=== PATIENT | female | born 1935 | race Caucasian/White ===

== ENCOUNTER 2017-09-06 14:05 | Inpatient (IN) | payer OTHER ==
[~2017-09-06] VITALS: Ht 154.9 cm; Wt 79.6 kg
[2017-09-06 14:00] VITALS: BP 143/83; PULSE 68; TEMP 36.6; O2SAT 94; Ht 154.9 cm; Wt 79.6 kg
[2017-09-06] MEDS ORDERED: ACETAMINOPHEN 325 MG TAB PO PRN (14:45)
[2017-09-06] MEDS ORDERED: BENZ100C84 PO (14:49)
[2017-09-06] MEDS ORDERED: POLYSOL4 OPB (14:49)
[2017-09-06] MEDS ORDERED: LEVE750T PO (14:49)
[2017-09-06] MEDS ORDERED: NTRGSL/4 SL (14:49)
[2017-09-06] MEDS ORDERED: CALC500C70 PO (14:49)
[2017-09-06] MEDS ORDERED: DPRSCR15 TOP (14:49)
[2017-09-06] MEDS ORDERED: FAMO20TA11 PO (14:49)
[2017-09-06] MEDS ORDERED: POTA10CA28 PO (14:49)
[2017-09-06] MEDS ORDERED: OSEL75CA12 PO (14:49)
[2017-09-06] MEDS ORDERED: LNX125 PO (14:49)
[2017-09-06] MEDS ORDERED: PRAV20TA PO (14:49)
[2017-09-06] MEDS ORDERED: PRED20TA PO (14:49)
[2017-09-06] MEDS ORDERED: FURO-85 PO (14:49)
[2017-09-06] MEDS ORDERED: ATRINS NEB (16:33)
[2017-09-06] MEDS ORDERED: CMD/25 PO (16:33)
[2017-09-06] MEDS ORDERED: CMD5 PO (16:33)
[2017-09-06] MEDS ORDERED: CHOL400T PO (16:33)
[2017-09-06] MEDS ORDERED: METO100T44 PO (16:33)
[2017-09-06] MEDS ORDERED: PRAV40TA2 PO (16:33)
[2017-09-06 16:37] VITALS: BP 133/85; PULSE 72; TEMP 36.5; O2SAT 92
[2017-09-06 16:48] LABS: INR 2.1 (0.9-1.1)
[2017-09-06 16:57] LABS: ALBUMIN 3.4 gm/dl (3.4-5.0); CALCIUM 8.9 mg/dl (8.5-10.1); CREATININE 1.13 mg/dl (0.60-1.20); POTASSIUM 4.7 mmol/L (3.5-5.1)
[2017-09-06 16:59] LABS: PHOSPHORUS 2.6 mg/dl (2.5-4.9); TOTAL PROTEIN 7.3 gm/dl (6.4-8.2)
--- NOTE | 2017-09-06 17:12 | History and Physical ---
History & Physical Date & Time of Service: Sep 06, 2017 ~ 16:00 Chief Complaint: Atrial Fibrillation with RVR, Transferred from [facility] Primary Care Physician: Edmund Bearden History of Present Illness 82 year old female who was admitted to [facility] yesterday for atrial fibrillation with RVR and influenza B. Patient has a long standing history of difficult to control atrial fibrillation. She was hospitalized at the beginning of August and was started on digoxin in addition to her high dose metoprolol succinate. About 5 days ago patient started to get sick with fevers and productive cough. Influenza was [facility] Patient is unsure if she has been taking this medication correctly. She had an appointment with Dr. Chowdhury yesterday who found the patient to be in atrial fibrillation with RVR. She was then sent to [facility] ED where she was admitted. She was found to be influenza B positive. She was continued on Tamiflu and started on low dose Prednisone. She was also started on Cardizem drip for heart rate control which has since been weaned off. Her INR was 1.8 and she was started on Heparin gtt which has been discontinued as well. INR was 2.1 this morning. Patient currently reports she is feeling well. She reports much improvement in her cough. No feelings of chest pain, palpitations, or shortness of breath. She denies lightheadedness, dizziness, diaphoresis, or syncopal events. No abdominal pain, nausea, vomiting, or diarrhea. She denies any urinary symptoms. No further fevers or chills. At the time of my exam, patient is resting in bed in no acute distress. Past Medical/Surgical History Medical Problems: (1) Centrilobular emphysema Status: Chronic (2) CVA (cerebral vascular accident) Status: Chronic (3) Dyslipidemia Status: Chronic (4) Esophageal stricture Status: Chronic (5) HTN (hypertension) Status: Chronic (6) Osteoporosis Status: Chronic (7) Paroxysmal A-fib Status: Chronic (8) Refusal of blood transfusions as patient is Sabianism Status: Chronic (9) Seizure disorder Status: Chronic (10) Systolic CHF Status: Chronic (11) TIA (transient ischemic attack) Status: Chronic Surgical Problems: (1) History of appendectomy Status: Chronic (2) History of carpal tunnel surgery of right wrist Status: Chronic (3) History of cataract surgery Status: Chronic (4) History of lumpectomy of left breast Status: Chronic (5) Hx of cholecystectomy Status: Chronic (6) Hx of rectocele repair Status: Chronic (7) Hx of vaginal sling Status: Chronic (8) Status post ALFREDO-BSO Status: Chronic Family History non contributory due to patient's advanced age Social History Smoking Status: Never Smoker Alcohol Use: none Immunizations History of Influenza Vaccine: Yes Influenza Vaccine Date: Apr 08, 2027 History of Tetanus Vaccine?: Yes Tetanus Immunization Date: Apr 03, 2013 History of Pneumococcal: Yes Pneumococcal Date: Oct 15, 2014 Allergies Coded Allergies: Penicillins (Verified Allergy, Intermediate, HIVES, 09/06/17) Amiodarone (Verified Allergy, Unknown, unknown, 09/06/17) Diazepam (Verified Adverse Reaction, Intermediate, loss of consciousness, 09/06/17) Lisinopril (Verified Adverse Reaction, Intermediate, cough, 09/06/17) Niacin (Verified Adverse Reaction, Intermediate, elevated LFT's, 09/06/17) Cholestyramine (Verified Adverse Reaction, Mild, weight gain, 09/06/17) Albuterol (Verified Adverse Reaction, Unknown, dizziness, 09/06/17) Amlodipine (Verified Adverse Reaction, Unknown, edema, 09/06/17) Sotalol (Verified Adverse Reaction, Unknown, arrhythmia, 09/06/17) Home Medications Scheduled Betamethasone Dip (Betamethasone Dipropionat), 1 APPLN TOP HS Calcium/Vitamin D (Os-Jean-Pierre 500 Plus D), 1 TAB PO DAILY Cholecalciferol (Vitamin D), 1 CAP PO DAILY Digoxin (Digoxin), 1 TAB PO DAILY Famotidine (Pepcid), 20 MG PO DAILY Furosemide (Lasix), 60 MG PO BID Ipratropium [place] (Ipratropium [place]), 1 VIAL NEB BID Levetiracetam (Keppra), 750 MG PO BID Metoprolol Succ (Toprol Xl) (Toprol-Xl ), 100 MG PO BID Nitroglycerin (Nitrostat), 1 TAB SL UD Oseltamivir (Tamiflu), 75 MG PO BID Potassium Chloride (Micro-K Ext Rel), 10 MEQ PO DAILY Pravastatin Sodium (Pravastatin Sodium), 1 TAB PO HS Prednisone (Prednisone), 1 TAB PO DAILY Warfarin Sod (Coumadin), 5 MG PO 3XWK Warfarin Sod (Coumadin), 2.5 MG PO 4XWK Scheduled PRN Benzonatate (Tessalon Perles), 100 MG PO TID PRN for Cough Polyethylene Glycol-Propylene (Systane), 1 DROPS OPB QID PRN for DRYNESS Review of Systems ROS per HPI, all other systems reviewed and negative Physical Exam Vital Signs Date Time Temp Pulse Resp B/P (MAP) Pulse Ox O2 Delivery O2 Flow Rate FiO2 09/06/17 16:37 36.5 72 18 133/85 (101) 92 Room Air 09/06/17 14:00 36.6 68 20 143/83 94 Room Air General Appearance: WD/WN, no apparent distress Head: normocephalic, atraumatic Eyes: normal inspection, EOMI, sclerae normal ENT: hearing grossly normal, + pertinent finding (mucous membranes moist) Neck: supple, no JVD, trachea midline Respiratory/Chest: no respiratory distress, + wheezing (faint, scattered, expiratory ) Cardiovascular: + irregularly irregular (rate controlled), + pertinent finding (trace edema BLLE) Abdomen/GI: normal bowel sounds, non tender, soft, no organomegaly Extremities/Musculoskelatal: normal inspection, no calf tenderness, normal capillary refill Neurologic/Psych: no motor/sensory deficits, alert, normal mood/affect, oriented x 3 Skin: normal color, warm/dry Diagnostics Laboratory Results Results Past 24 Hours Test 09/06/17 16:24 Range/Units Impression Assessment and Plan ATRIAL FIBRILLATION - admit to tele - patient transferred from [facility] to undergo ablation and cardiac pacemaker placement with Dr. Chowdhury - patient has along standing history of difficult to control atrial fibrillation - had a recent hospitalization where digoxin was added to high dose metoprolol succinate - developed fever/cough about 5 days ago and presented to Dr. Chowdhury's office yesterday and found to be in atrial fibrillation with RVR - was sent to [facility] ED where she was admitted - was on Cardizem gtt which has since been weaned off - also was on heparin gtt for mildly subtherapeutic INR; INR today 2.1; no longer on heparin gtt - case discussed with Dr. Chowdhury - ok to give metoprolol tonight, NPO after midnight including meds; also requests anesthesia evaluation INFLUENZA B MILD COPD EXACERBATION - positive for influenza B at [facility] - droplet precautions - continue Tamilfu to complete course - continue low dose prednisone to complete 5 day course - check CXR - nebs CHRONIC SYSTOLIC CHF - EF 42% on echo 08/2017 - likely tachycardia induced - appears euvolemic, continue home dose furosemide SEIZURE DISORDER - continue levetiracetam CAODAISM DVT PROPHYLAXIS - INR 2.1 CODE STATUS - Patient is a full code as per my discussion with her. DISPO - In my clinical judgment this beneficiary meets acute admission criteria, established by [facility], that includes being hospitalized through two midnights. 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 Y/N: Yes Risk Level: Moderate Note ATTENDING ADDENDUM Record reviewed. Patient interviewed and examined. Care coordinated with SAIRA Avina. Please refer to her documentation for patient's history. Briefly, 82-year-old female with atrial fibrillation and other problems transferred from [facility] for anticipated ablation/ pacemaker. Recently diagnosed with influenza B. EXAM: General- no distress Lungs-diffuse mild wheezing; no respiratory distress Cardiovascular- irregular; no murmur or rub appreciated; no JVD; trace pretibial edema Abdomen- + bowel sounds, soft, nontender Extremities- no cyanosis; no calf tenderness Neuro- alert, mild confusion Skin- warm & dry . DATA: Lab studies as noted. EKG performed at 1651 demonstrated atrial fibrillation at a rate of 70/minute, left axis deviation, left bundle branch block. Chest x-ray demonstrated cardiomegaly, no infiltrates, effusions, CHF. ASSESSMENT AND PLAN: Persistent atrial fibrillation. Management per Cardiology. Recently diagnosed with influenza B with improving symptoms. Receiving prednisone for bronchospasm. Discontinue oseltamivir due to confusion. Change nebs to levalbuterol in light of atrial fibrillation. Patient was a bit confused at the time of my assessment and more confused later in the evening. Apparent delirium, possibly from medications. Oseltamivir and ipratropium discontinued. Please refer to SUSAN Rodrigues's documentation for discussion of other issues. Nehemiah Galvez MD .
[2017-09-06 17:14] LABS: BASO % 0.2 %; BASO ABS # 0.01 K/uL (0-0.2); HEMATOCRIT 43.5 % (37-47); HEMOGLOBIN 14.7 g/dL (12.0-16.0); IG# 0.01 K/uL (0.00-0.02); LYMPH % 19.7 %; LYMPH ABS # 1.03 K/uL (1.2-3.4); MEAN CORPUSCULAR HEMOGLOBIN 32.5 pg (25-34); MEAN CORPUSCULAR HGB CONC 33.8 g/dl (32-36); MEAN PLATELET VOLUME 11.6 fL (7.4-10.4); MONO % 4.8 %; MONO ABS # 0.25 K/uL (0.11-0.59); NEUT % 75.1 %; NEUT ABS # 3.93 K/uL (1.4-6.5); PLATELET COUNT 130 K/uL (130-400); RED CELL DISTRIBUTION WIDTH CV 14.4 % (11.5-14.5); RED CELL DISTRIBUTION WIDTH SD 50.8 fL (36.4-46.3); WHITE BLOOD COUNT 5.23 K/uL (4.8-10.8)
[2017-09-06] MEDS: FUROSEMIDE 20 MG TAB PO SCH (18:39)
--- NOTE | 2017-09-06 18:44 | Anesthesiology Progress Note ---
Anesthesia Progress Note Date of Service Sep 06, 2017. Progress Notes Ms. Pineda is scheduled for EP procedure with pacemaker insertion with Dr. Conde tomorrow. I was asked to preop this patient the day before her scheduled date. Allergies as noted above. Patient has had multiple surgeries ( to include a cath with no stents) with chief complaint of severe PONV. She was transferred to [facility] from an OSH with A fib with RVR and also recently diagnosed with influenza B and is undergoing tamiflu treatment. PMH significant for COPD, HTN, systolic CHF (EF 42% aug 2017), difficult to control A fib, CVA ( 10+ years ago without neuromuscular deficit but does appear to suffer from cognitive deficits), Seizure disorder (last seizure several years ago, patient unsure when). No tobacco or EtOH use. Report as a Jehova's Witness. EKG showed A fib but with HR of 71 (had been on cardizem ggt but was weaned off). Currently on Toprol XL and digoxin. Labs notable for INR of 2.1. Airway exam MP 3 with upper denture. Mild wheezes heard on auscultation. Irregular HR. Patient did not have appreciable cough during my time speaking with her and is not on any supplemental oxygen although she states her breathing is not currently at her baseline. She was extensively counseled regarding risk and benefits of anesthesia and consented for MAC. Ultimate decision will be made tomorrow regarding her respiratory status and urgency of surgery and whether or not she should proceed with the surgery. All questions answered with patient, her and her daughter.
[2017-09-06 18:57] VITALS: PULSE 73; O2SAT 98
[2017-09-06] MEDS: LEVALBUTEROL 1.25MG/0.5ML NEB INH SCH (18:57)
[2017-09-06 19:45] VITALS: BP 115/79; PULSE 57; TEMP 36.8; O2SAT 93
[2017-09-06 20:10] VITALS: PULSE 57; TEMP 36.8
[2017-09-06] MEDS ORDERED: IPRATROPIUM BROMIDE NEB SOLN 0.02% 2.5 ML VIAL INH SCH (21:00)
[2017-09-06] MEDS ORDERED: OSELTAMIVIR PHOSPHATE 75 MG CAP PO SCH (21:00)
[2017-09-06] MEDS ORDERED: LEVALBUTEROL/IPRATROPIUM NEB INH SCH (21:00)
[2017-09-06] MEDS ORDERED: OSELTAMIVIR PHOSPHATE SUSP 30 MG/5 ML UDP PO SCH (21:00)
[2017-09-06] MEDS ORDERED: METOPROLOL SUCC 50MG EXT REL TAB PO SCH (21:00)
--- NOTE | 2017-09-06 22:21 | DIAGNOSTIC IMAGING REPORT ---
CHEST ONE VIEW PORTABLE CLINICAL HISTORY: Wheezing. Atrial fibrillation. COMPARISON STUDY: No previous studies for comparison. FINDINGS: Lung volumes are normal. Lungs are clear. No pneumothorax or pleural effusion is noted. There is no evidence for pulmonary edema. There is moderate cardiomegaly. IMPRESSION: 1. No acute cardiopulmonary findings. 2. Moderate cardiomegaly without evidence of pulmonary edema. Electronically signed by: Luiz Walden M.D. 09/06/2017 10:19 PM Dictated Date/Time: 09/06/2017 10:04 PM
[2017-09-06] MEDS: LEVETIRACETAM 250 MG TAB PO SCH (23:00)
[2017-09-06] MEDS: PRAVASTATIN SOD 40 MG TAB PO SCH (23:00)
[2017-09-06] MEDS ORDERED: LEVALBUTEROL 0.63MG/3 ML NEB INH PRN (23:45)
[2017-09-07] VITALS (17 sets, daily range): BP systolic 115–142; BP diastolic 67–86; PULSE 65–90; TEMP 36.5–37.1; O2SAT 90–98
[2017-09-07] MEDS: LEVALBUTEROL 1.25MG/0.5ML NEB INH SCH ×4 (01:20→19:10)
[2017-09-07] MEDS ORDERED: CLINDAMYCIN 600 MG/54 ML D5W IV SCH (06:00)
[2017-09-07] MEDS ORDERED: CLINDAMYCIN IV 600 MG in DEXTROSE 5% ADD-VANTAGE 50ML 50 ML IV SCH (06:00)
[2017-09-07 06:26] LABS: INR 1.8 (0.9-1.1)
[2017-09-07] MEDS ORDERED: BUPIVACAINE 0.5 % 5 MG/1 ML MPF 30ML VIAL ONE (07:29)
[2017-09-07] MEDS ORDERED: LIDOCAINE HCL 1% 20 ML VIAL ONE ×2 (07:29→08:46)
[2017-09-07] MEDS ORDERED: BACITRACIN 50000 UNIT VIAL ONE (07:29)
[2017-09-07] MEDS ORDERED: FENTANYL CITRATE INJ 50 MCG/1 ML 2 ML VIAL ONE ×2 (07:46→10:23)
[2017-09-07] MEDS ORDERED: MIDAZOLAM HCL 1 MG/ML 2ML VIAL ONE (07:46)
--- NOTE | 2017-09-07 08:13 | History & Physical Bridge Note ---
H&P Re-Evaluation Bridge Note: I have examined the patient, reviewed the History & Physical and in the interval since the performance of the History & Physical I have noted the following changes of clinical significance: Pt with AF and RVR unresponsive to high dose AVN blockers and now with NICM due to tachycardia mediated and recurrent HF. Recommend BiV pacemaker followed by AVN ablation
[2017-09-07] MEDS ORDERED: PROPOFOL IV EMULSION 10 MG/ML 20 ML VIAL IV ONE ×2 (08:54→11:49)
[2017-09-07] MEDS ORDERED: LIDOCAINE HCL 2% 2 ML VIAL (20MG/ML) ONE (08:54)
[2017-09-07] MEDS ORDERED: ONDANSETRON INJ 2 MG/ML 2 ML VIAL ONE (08:54)
[2017-09-07] MEDS: POTASSIUM CHLORIDE 10 MEQ TABCR PO SCH (09:00)
[2017-09-07] MEDS: CALCIUM 600MG + VIT D 400 IU TAB PO SCH (09:00)
[2017-09-07] MEDS: FUROSEMIDE 20 MG TAB PO SCH ×2 (09:00→17:29)
[2017-09-07] MEDS: FAMOTIDINE 20 MG TAB PO SCH (09:00)
[2017-09-07] MEDS: CHOLECALCIFEROL 400 INTER.UNIT TAB PO SCH (09:00)
[2017-09-07] MEDS ORDERED: ARTIFICIAL TEARS OP OINT 3.5 GM TUBE ONE (09:03)
[2017-09-07] MEDS ORDERED: FENTANYL CITRATE INJ 50 MCG/1 ML 2 ML VIAL IV PRN (10:15)
[2017-09-07] MEDS ORDERED: ONDANSETRON INJ 2 MG/ML 2 ML VIAL IV PRN (10:15)
[2017-09-07] MEDS ORDERED: EpHEDrine SULFATE INJ 50 MG/ML AMP IV PRN (10:15)
[2017-09-07] MEDS ORDERED: ATROPINE SULFATE 0.1 MG/ML 5ML SYR IV PRN (10:15)
--- NOTE | 2017-09-07 13:42 | Cardiology Consultation ---
Cardiology Consultation Date of Service Sep 07, 2017. Cardiology Consultation NOTE COPIED FROM MY OFFICE VISIT FROM 09/05/2107 WITH ADDENDUM NOTED BELOW: Subjective: Roxi Pineda is a 82 year old female. Chief Complaint Patient presents with FOLLOW UP rm 12 Pt here for EP f/u after hospital discharge and to discuss BIV ppm implant with AVN ablation Referring Physician: Dr. 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 She was discharged from the hospital 1 week ago. She was taking her toprol and digoxin until 3 days ago when she stopped taking her digoxin because she thought her pulse was below 90 but this was probably not true. Last night she had a bad night with SOB and orthopnea; she denies fevers or myalgias PMH: Patient Active Problem List Diagnosis Code Incipient senile cataract H25.099 BENIGN NEOPLASM LG BOWEL D12.6 ADJ DISORDER W/DEPRES MOOD F43.21 CHR ANGLE-CLOS GLAUCOMA H40.2290 mild hypokalemia E87.8 long term care phlebotomist current use of anticoagulant therapy Z79.01 Respiratory abnormality J98.9 DISC DIS [id number]-MUD-GQKWOM M51.9 BACKACHE NOS M54.9 Living Will on File INFO HTN, goal below 140/90 I10 History of TIA (transient ischemic attack) Z86.73 Meniere's disease H81.09 MIXED INCONTINENCE, URGE AND STRESS N39.46 Chronic rhinitis J31.0 INFORMATION INFO Female stress incontinence N39.3 CVA L MCA distrib patchy L post parietal and temporal nonhem [id number] JOINT PAIN-L-LEG* M25.569 Sequela, post-stroke I69.30 Myalgia and myositis [id number] Hearing loss H91.90 SEIZURES, COMPLEX-PARTIAL, 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 f/u by neuro Dr CARRILLO G40.209 Obesity, Class I, BMI 30.0-34.9 (see actual BMI) E66.9 Epistaxis R04.0 Vertigo R42 History of esophageal stricture Z87.19 Senile osteoporosis M81.0 Dyslipidemia, goal LDL below 100 E78.5 OA (osteoarthritis) of knee M17.10 Refusal of blood transfusions as patient is Holiness Z53.1 Vitamin D insufficiency E55.9 Advance directive on file Z78.9 Centrilobular emphysema (HCC) J43.2 Cardiomyopathy (HCC) I42.9 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 30 Cap 0 Betamethasone Dipropionate 0.05 % ointment apply at bedtime to affected area for Lichen sclerosis 45 g 3 Calcium Carbonate-Vitamin D (CALCIUM 600+D) 600-400 MG-UNIT per tablet Take 1 Tab by mouth daily. Cholecalciferol (VITAMIN D) 400 UNITS Capsule Take 1 Cap by mouth daily. 30 Cap 11 digoxin (LANOXIN) 125 mcg Tablet Take 1 Tab by mouth daily. 30 Tab 1 famotidine (PEPCID) 20 MG Tablet Take 1 Tab by mouth daily. 30 Tab 1 furosemide (LASIX) 20 MG Tablet Take 3 Tabs by mouth 2 times a day. 180 Tab 1 Levetiracetam 750 MG Tablet TAKE 1 TABLET, BY MOUTH, TWICE DAILY. 60 Tab 11 NITROSTAT 0.4 MG SUBL DISSOLVE 1 TAB, UNDER THE TONGUE, IF NEEDED FOR CHEST PAIN - REPEAT EVERY 5 MINUTES FOR MAX OF 3 DOSES - NO RELIEF CALL 911 OR GO TO E.R. 25 Tab 4 oseltamivir (TAMIFLU) 75 MG Capsule Take 1 Cap by mouth 2 times a day for 5 days. For 5 days. 10 Cap 0 Polyethyl Glycol-Propyl Glycol (SYSTANE) 0.4-0.3 % ophthalmic solution Instill into eye as needed for Dry eyes. potassium chloride ER 10 MEQ TBCR Take 2 Tabs by mouth daily. 60 Tab 5 pravastatin (PRAVACHOL) 40 MG Tablet TAKE 1 TABLET, BY MOUTH, DAILY AT BEDTIME. 30 Tab 11 warfarin sodium (COUMADIN) 5 MG Tablet TAKE 1 TABLET, BY MOUTH, DAILY DIRECTED. 30 Tab 11 Past Medical History: Diagnosis Date Acute systolic CHF (congestive heart failure) (HCC) 06/09/2015 Admission -2014 Atrial fibrillation (HCC) 08/23/2003 While in [place] developed a.fib (? related to low K 2.7 see below -vomitting)and then converted spontaneusly on 08/19 felt palpitations seen in the ER (notes from dr Montanez reviewed) and dgn with reccurrence. Started on CArdizem and Coumadin ECHO OK nl LV 08/30/03 K=4.0 Benign neoplasm of colon first last time last colo ()neg 08/[address] Mcbride Cardiac arrest (HCC) 06/03/15 Cerebrovascular event, ill-defined, within last 8 weeks 05/17 Chronic angle-closure glaucoma(365.23) S/P PI OU; 0.1 OU (01/23) Colon polyp 06/16/2011 05/09/2011colo-> repeat in 5 yrs (Ph polyps) CVA (cerebral infarction) Depressive disorder, not elsewhere classified since Dyslipidemia, goal LDL below 70 started on Questran 1 yr ago. 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 06/09/2015 TSH Results: TSH(uIU/mL) Magen Dt/Tm Resulted Value Status --- 06/05/15 8:06A 06/05/15 0.00* FINAL 03/25/15 9:43A 03/25/15 2.64 FINAL 09/13/14 10:03A 09/13/14 5.00* FINAL INFORMATION 09/18 optic neurop - MRI brain OK;NAION OD; baseline Internal hemorrhoids 06/09/11 found on colonscopy Lens replaced by other means OD Lung nodule Meniere's disease chronic variable bilateral tinnitus Meniere's disease 1970 35 years Meniere's disease, cochleovestibular, active dgn 1971 in [place],last episode 1993 c tinnitus, vertigo Menopause 08/25/2005 08/25/2005 Compared to a scan of September 04, 2002, there has been no significant change at the lumbar spine and no significant change at the total hip. Mixed urge and stress incontinence Obesity, Class I, BMI 30-34.9 Other specified forms of hearing loss has hearing aids Paroxysmal atrial fibrillation (HCC) 08/23/200307/26-Holter -afib with pause to 2.7 sec--refer EP as per card note>Greg luevano 08/01/15-ct rate ctr,anticoag 06/24--see hosp fu notes>stress test -negative but she did have moderately fixed defect of the apical septum and interventricular septum. EF was 51%. 04/23-Deysi dec dose 100mg >.Cardiology dc med 05/09/15(has valdes,cough) 10/14/2009 on Amio 10/08/2009 admitted in a.fib (and ?VT) betapace stopped cardiover planned + Amiodarone 01/28/2009 reg 2007 reg now , no recent episodes (no typical episodes of tightening in the chest -usu 10min ) Lat one in 07/19/2007 episode of likelly reccurent afib with mod rate 99/min 07/26/2006 regular 08/09/2005 no more episodes since ER visit (getSOB with the a.fib - max was 120s) INR 2.5-3.[address] Medrano, urology physician While in [place] developed a.fib (? related to low K 2.7 see below - vomitting)and then converted spontaneusly on 08/19 felt palpitations seen in the ER (notes from dr Montanez reviewed) and dgn with reccurrence. Started on CAr Phlebitis and thrombophlebitis in her 20s, while on BCP Punctate keratitis Senile cataract, unspecified OS TIA (transient ischemic attack) 4 times in 1992, neg MRI, ECHO,CT. Past Surgical History: Procedure Laterality Date BREAST SURGERY PROCEDURE NEC Left lumpectomy BREAST SURGERY PROCEDURE NEC milk duct removed, left breast CARPAL TUNNEL SURGERY right COLONOSCOPY 2002 COLONOSCOPY, W/BIOPSY 11/30/11 EGD, FLEXIBLE, DIAGNOSTIC N/A 08/09/2014 mild inflammation in the stomach and esophagus/ESOPHAGOGASTRODUODENOSCOPY (EGD) , FLEXIBLE, TRANSORAL, DIAGNOSTIC performed by Paulina Amezquita DO at ENDOSCOPY [facility] EGD, FLEXIBLE, W/BIOPSY 06/09/11 IRIDOTOMY / IRIDECTOMY, LASER 03-21-97 PI OD IRIDOTOMY / IRIDECTOMY, LASER 03/28/97 PI OS OTHER 2002 bladder and bowel lifted to avoid hernia REMOVAL OF APPENDIX 194, appendix still intact during GB surg so it was removed REMOVE CATARACT, INSERT LENS PROSTH 12/13/14 OD Aj SA60AT +22.0 REMOVE CATARACT, INSERT LENS PROSTH Right 12/13/2014 EXTRACAPSULAR CATARACT REMOVAL WITH INTRAOCULAR LENS performed by Rashaun John MD at OR [facility] REMOVE GALLBLADDER open procedure REPAIR BLADDER DEFECT 05/08/07 VAGINAL SLING PROCEDURE FOR STRESS INCONTINENCE performed by BLUE HYLTON at OR [place] REPAIR OF VAGINA 2002 REPAIR RECTOCELE 2002 TENDON SHEATH INCISION, FINGER right long finger TOTAL HYSTERECTOMY ALFREDO w/ BSO due to fibroids Review of patient's allergies indicates: Allergen Reactions Amiodarone Hcl Betapace [Sotalol Hcl] Other (Please comment) Caused irregular heart beat Albuterol Sulfate Other (Please comment) Extreme dizziness per pt. See My G 10-06-12. Amlodipine Leg edema Cholestyramine pt thinks causing weight gain Diazepam LOC Lisinopril cough Niacin chol controlled but affected the liver Penicillins hives, Family History Problem Relation Age of Onset Heart disease Brother Heart Disorder Mother Stroke Mother Heart Disorder Father Stroke Father Heart Disorder Brother Heart Disorder Sister Dementia Sister Cancer Sister non hodgkins lymphoma, Ovarian, stomach, lung, skin Cancer Brother esophagus Heart attack Brother AA aneurysm and AAA [OTHER] Brother Heart disease Brother Family Status Relation Status Brother Mother Father Brother Sister Alive Sister Alive Brother Brother Social History Social History Marital status: Spouse name: N/A Number of children: N/A Years of education: N/A Occupational History RETIRED/ [employer] Social History Main Topics Smoking status: Never Smoker Smokeless tobacco: Never Used Alcohol use No Drug use: No Sexual activity: No Other Topics Concern Not on file Social History Narrative 02/11/2010 Household: Lives w/ only Exercise: none 2 dogs which sleep in the bed. No mold. Oil hot water and propane. Window airconditioning Review of Systems Constitutional: Positive for activity change and fatigue. Negative for chills and fever. Respiratory: Positive for cough and shortness of breath. Cardiovascular: Positive for palpitations. Negative for chest pain and leg swelling. Gastrointestinal: Negative for diarrhea and vomiting. Neurological: Positive for dizziness and light-headedness. Negative for syncope. Objective: BP 112/60 | Pulse 68 | Ht 5' 1" (1.549m) | Wt 176 lbs (79.833kg) | BMI 33.25 kg/ m | BSA 1.85 m Physical Exam Constitutional: She is oriented to person, place, and time. She appears well- developed and well-nourished. No distress. HENT: Head: Normocephalic and atraumatic. Eyes: Conjunctivae and EOM are normal. Neck: Neck supple. JVD present. Cardiovascular: S1 normal and S2 normal. An irregularly irregular rhythm present. Tachycardia present. No murmur heard. Pulses: Radial pulses are 2+ on the right side, and 2+ on the left side. No LE edema b/l Pulmonary/Chest: Effort normal. No accessory muscle usage. No respiratory distress. She has decreased breath sounds in the right lower field and the left lower field. She has no wheezes. She has rhonchi. She has no rales. Abdominal: Soft. Normal appearance. Neurological: She is alert and oriented to person, place, and time. Skin: Skin is warm and dry. Psychiatric: She has a normal mood and affect. Her speech is normal and behavior is normal. Judgment and thought content normal. Cognition and memory are normal. RESULTS: ECGs: Today: Independently reviewed by myself AF 132bpm LBBB QRS 120ms 08/28/2017: AF 84bpm 08/26/2017: AF 131bpm LBBB QRS 134ms 08/23/2017: AF 133bpm LBBB QRS 128ms 06/09/2018: AF 81bpm LBBB QRS 120ms 05/03/2017: SR 66bpm LBBB QRS 130ms Echocardiograms: 08/2017: Calculated LV ejection Fraction = 42% (biplane method of discs). The LV wall thickness is mildly increased (concentric). Left atrial enlargement suggests diastolic left ventricular dysfunction. Left ventricular diastolic dysfunction is present when systolic function is reduced. The aortic valve is mildly calcified. Aortic stenosis is absent. There is mild mitral annular calcification. Moderate mitral regurgitation is present. Moderate tricuspid regurgitation is present. There is mild pulmonary regurgitation. Normal IVC size and collapsability with inspiration indicates a normal right atrial pressure of 3 mmHg. The estimated pulmonary artery systolic pressure is 44mm Hg. 05/30/2017: Calculated LV ejection Fraction = 58% (biplane method of discs). The left ventricular cavity size is normal. The LV wall thickness is mildly increased (concentric). There is no left ventricular mural thrombus. The left ventricular wall motion is normal. The left ventricular diastolic function is mildly abnormal (grade I). No significant valvular abnormalities. Similar findings when compared to study dated 08/16/2016. Cardiac Catheterization Comments: The coronary arteries have diffuse minor irregularities.The left ventricular end diastolic pressure was high. ASSESSMENT 1. Permanent AF with RVR on high dose toprol and rates improved; [id number] (age, female, HTN, CHF, CVA) 2. Acute on chronic systolic HF, NYHA Class III 3. Newly diagnosed cardiomyopathy-probably tachycardia induced; EF was normal in 05/2017 and now 42% on echo from 08/27/2017 4. HTN 5. H/o CVA in 2014 6. H/o amiodarone induced hyperthryoidism PLAN: -Transfer to ED to get IV digoxin dose -Check labs in ED BNP, CBC, CMP, Digoxin level -Will arrange to move up her BiV ppm followed by AVN ablation to this Tuesday09/07/2017 as I do not think the patient will be able to tolerate another week with this condition -Discussed procedure and risks which include but are not limited to arrhythmias , strokes, heart attacks, injury to with blood vessels/lungs or chamber of the heart, , bleeding and infection with the patient and her ; they expressed an understanding and wish to proceed. -If pt is admitted to [facility] then we will arrange for transfer to [facility] tomorrow ( Tuesday09/06/2017) -Hold coumadin Yolanda Chowdhury DO ADDENDIUM: Since my visit with her in the office 2 days ago she was admitted to [facility] responded to IV digoxin and some IV cardizem. She did rule in for Flu B and got tamiflu x2. She was transferred to [facility] for BiV Pacemaker followed by AVN ablation. Her coumadin has been held HR is better No acute HF-volume status better No fevers and WBC normal
[2017-09-07] MEDS ORDERED: ACETAMINOPHEN 325 MG TAB PO PRN (13:45)
--- NOTE | 2017-09-07 13:55 | [facility] Post Operative Brief Note ---
Immediate Operative Summary Operative Date Sep 07, 2017. Pre-Operative Diagnosis permanent af with RVR, acute on chronic systolic and diastolic HF-NYHA Class III, LBBB Post-Operative Diagnosis same Procedure(s) Performed BiVentricular permanent pacemaker rate responsive; peripheral and coronary sinus venogram; AV Sherlyn ablation Surgeon matilde rios Development Analyst Surgeon(s) none Estimated Blood Loss 25cc Findings See Below see official report Fluids (cc crystalloids) 600cc Specimens none Drains None Anesthesia Type MAC Complication(s) none Disposition Accompanied Pt To Recover: yes Disposition: PCU
--- NOTE | 2017-09-07 14:55 | Anesthesiology Progress Note ---
Anesthesia Post Op Note Date & Time Sep 07, 2017 at 14:55 Vital Signs Pain Intensity: 0.0 Vital Signs Past 12 Hours Date Time Temp Pulse Resp B/P (MAP) Pulse Ox O2 Delivery O2 Flow Rate FiO2 09/07/17 14:30 89 142/86 (104) 94 Nasal Cannula 2.0 09/07/17 14:23 67 16 94 Room Air 09/07/17 14:15 36.5 90 16 135/83 (100) 92 Room Air 09/07/17 13:57 90 18 133/88 (103) 94 Room Air 09/07/17 13:47 89 16 117/76 (90) 93 Room Air 09/07/17 08:00 Room Air 09/07/17 07:46 36.9 65 18 131/85 (100) 95 Room Air 09/07/17 06:56 67 16 94 Room Air 09/07/17 04:00 Room Air 09/07/17 03:59 36.8 70 18 115/73 (87) 90 Room Air Notes Mental Status: alert / awake / arousable, participated in evaluation Pt Amnestic to Procedure: Yes Nausea / Vomiting: adequately controlled Pain: adequately controlled Airway Patency, RR, SpO2: stable & adequate BP & HR: stable & adequate Hydration State: stable & adequate Anesthetic Complications: no major complications apparent
[2017-09-07] MEDS ORDERED: WARFARIN SOD 5 MG TAB PO SCH (16:00)
[2017-09-07] MEDS ORDERED: DIGOXIN 0.125 MG TAB PO SCH (16:00)
--- NOTE | 2017-09-07 18:50 | OPERATIVE REPORT ---
DATE OF OPERATION: 09/07/2017 PREOPERATIVE DIAGNOSES: Permanent atrial fibrillation with rapid ventricular response, responsive to high dose atrioventricular lavelle blockers, acute on chronic diastolic and systolic heart failure [place] Heart Association class 3; nonischemic cardiomyopathy, ejection fraction was normal in May 2017, now reduced to 42% with a history of tachycardia-induced cardiomyopathy as well and left bundle branch block. POSTOPERATIVE DIAGNOSES: Same. PROCEDURE: Biventricular permanent rate responsive pacemaker under fluoroscopic guidance along with peripheral and coronary sinus venograms, and AV lavelle ablation. SURGEON: Yolanda Chowdhury. PRECISION HONER: None. ANESTHESIA: Monitored anesthetic care administered via anesthesiology, a total of 2 mg of Versed, 200 mcg of fentanyl, 530 mg propofol and 40 mg of lidocaine. She also got 4 mg of Zofran. ANTIBIOTICS: 600 mg of clindamycin. IV CONTRASAT: 55 mL. BLOOD LOSS: 25 mL. COMPLICATIONS: None. CONDITION: Stable. URINE OUTPUT: Not applicable. SPECIMENS: None. FINDINGS: See below. DRAINS: None. INDICATIONS: This is an 82-year-old female with a past medical history for atrial fibrillation which has now become permanent and she continues to have high rapid ventricular response despite excessively high AV lavelle blockers, history of tachycardia-induced cardiomyopathy where her EF had normalized and is now back down to 42%, thought to be because of permanent atrial fibrillation with rapid ventricular response; acute on chronic systolic and diastolic heart failure, [place] Heart Association class 3; history of CVA in 2014, hypertension and a history of amiodarone-induced hyperthyroidism. She was recommended a biventricular pacemaker followed by an AV lavelle ablation to better control her atrial fibrillation as well as her acute heart failure and her cardiomyopathy. CONSENT: Consent was obtained prior to patient going into the electrophysiology lab. The patient explained the risks, benefits, alternatives of procedure, risks include but not limited to sudden cardiac , cardiac arrhythmias, cerebrovascular accident, myocardial infarction, injury to the blood vessels, chamber of the heart, lung, bleeding and infection. The patient understood these risks and agreed to the procedure as planned. Her signed on her consent, as per the patient's request. DESCRIPTION OF PROCEDURE: The patient was brought into the electrophysiology lab in fasting state. She was connected to continuous catering and events manager. A timeout was performed to ensure patient identity and procedure correctly. The patient was prepped and draped over the left infraclavicular space in normal surgical standard fashion. Monitored anesthetic care given throughout the procedure for patient's comfort level. Roberts precautions maintained throughout the procedure. A 20 mL of 1% lidocaine, bupivacaine mixture were given in the left deltopectoral groove. Blunt dissection was performed down to identify cephalic vein; however, none could be identified, so peripheral venogram using 10 mL of IV contrast diluted in 10 mL of saline followed by 20 mL flush was performed. Axillary venous access was obtained with 2 different needle sticks without any complications and a guidewire was inserted without any resistance. Through the more lateral stick an 8-Azerbaijani sheath was advanced without any resistance. The guidewire and dilator removed and the right ventricular pacing lead was then advanced into right ventricle and positioned into the right ventricular apex under fluoroscopic guidance. There was adequate pacing and sensing thresholds and no diaphragmatic stimulation with high output pacing. The 8-Azerbaijani sheath was peeled away and lead was fixated to pectoralis muscle using 0 silk suture. A 9.5-Azerbaijani sheath was inserted over the more medial axillary stick and then an MPX coronary sinus sheath from [employer] was inserted into the right atrium. The dilator and wire were removed and using the diagnostic Decapolar coronary sinus catheter, the coronary sinus was cannulated. The sheath was inserted through it and then over the coronary sinus Decapolar catheter into the coronary sinus, then a venogram of the coronary sinus was performed and this did light up some tiny branches with some S-shaped takeoff that was about too higher up and going in the correct area of the posterolateral region and then there were 2 small bailout closer to the coronary sinus os. Of note, the coronary sinus os also had a little bit of a S-shaped kind of a takeoff. Initially, I tried using a Whisper wire to get into the most highest branch and I eventually was able to wire this branch with the support of a small 5-Azerbaijani sheath, but every time even using an inner 90 because of the takeoff from the main coronary sinus to this branch, I would keep losing support and I was not able to track either the S-shaped quadripolar lead or the bipolar canted 4-Azerbaijani lead, so I then tried to do the most proximal bailout branch and this also had acute takeoff. I was able to wire, I have tried with [place], a mailman and even a loose wire and at one point I did get the outer catheter down into this branch using the support of the 5-Azerbaijani sheath; however, everything pulled back again when I was trying to advance the bipolar canted 4-Azerbaijani lead or even the S-shaped lead. Ultimately, I was able to wire the one branch that was second and did not go out that far, but it had the straightest takeoff and I was able to wire this and get the sheath out enough for support and able to pass the S-shaped 5-Azerbaijani lead out pretty far as I could. We did have adequate pacing and no diaphragmatic stimulation. All the sheaths in, the in and outer sheaths were pulled under fluoroscopic guidance followed then by the 9.5-Azerbaijani sheath was split under fluoroscopic guidance. The left ventricular pacing lead was then fixated to the pectoralis muscle and sutured down using 0 silk suture. A pacemaker pocket was created using blunt dissection over the pectoralis muscle. Pocket was flushed with copious amounts of bacitracin saline wash and inspected for hemostasis. The pulse generator was then attached to the leads making sure that the pins were in appropriate and that the screws and set screws were all tightened. The pulse generator was then placed in an antibiotic tyrex pouch and then placed in the pocket. A stay stitch using 0 silk suture was used to secure the pulse generator to the pectoralis muscle. Nidia stat was placed in the pocket as the patient is going back on Coumadin. Then the incision was closed in a 3-layer fashion using 2-0 Vicryl interrupted suture followed by 3-0 Vicryl interrupted suture followed by a 4-0 Monocryl running stitch and Dermabond was applied. We then descrubbed and reprepped the bilateral groin area to set up for the AV lavelle ablation. Using the modified Seldinger technique after giving 10 mL of local 1% lidocaine in the right groin, femoral access was obtained and an SRO sheath was advanced up into the heart under fluoroscopic guidance. The ablation catheter 8 mm DF Golimi catheter was advanced through the sheath and positioned over the His bundle and then a series of radiofrequency ablations were performed. We ultimately did 70 taylor for 3 minutes had adequate temperatures and impedance and successful ventricular escape in the 40s, after appropriate monitoring. She remains with a ventricular escape in the 40s and we deemed the ablation successful. EQUIPMENT: 1. Pulse generator is a [employer] QUAD CRTP MRI SureScan W4TR02, serial #[id number]. 2. Right ventricular lead, Medtronic 5076-58 cm, serial #[id number]. 3. Left ventricular lead, [employer] 4598-88 cm, serial #[id number]. INTRAOPERATIVE TESTIN. Right ventricular lead: R-wave 6.9 millivolts, impedance 830 ohms, threshold 0.3 volts at 0.9 milliamps. 2. Left ventricular lead programmed LV1-LV2, impedance 733 ohms, threshold 2.4 volts at 1 millisecond. FINAL MEASUREMENTS THROUGH THE DEVICE: 1. Right ventricular lead: R-wave 7.9 millivolts, impedance 589 ohms, threshold 0.75 volts at 0.4 milliseconds. 2. Left ventricular lead programmed LV1-LV2: impedance 741 ohms, threshold 3 volts at 1.5 milliseconds. FINAL PARAMETERS: VVIR 90/130. Right ventricular amplitude 3.5 volts, pulse width was 0.4 milliseconds, sensitivity 1.2 millivolts. Left ventricular amplitude 4 volts, pulse width is 1.5 milliseconds. IMPRESSION: Successful implantation of biventricular rate responsive permanent pacemaker under fluoroscopic guidance along with a peripheral and coronary sinus venogram followed them by successful atrioventricular lavelle ablation. PLAN: Monitor patient overnight, 12-lead ECG, chest x-ray. She can restart her Coumadin, decrease her Toprol down to 50 b.i.d. and will slowly come off that, stop her digoxin for now. Continue her IV Lasix for now, reassess in the morning and hopefully if she is doing well, she might need physical therapy, start discharge planning. She will follow up in our [place] office for device and wound check in 1 week's time. She cannot lift the left elbow over left shoulder for 1 month. She cannot lift more than 10 pounds with the left arm for 2 weeks. She will be able to shower in 2 days. She should follow up with me in 1 month. I attest to the content of the Intraoperative Record and any orders documented therein. Any exception s are noted below.
--- NOTE | 2017-09-07 20:02 | Progress Note ---
Internal Med Progress Note Date of Service: Sep 07, 2017. Provider Documentation: SUBJECTIVE: s/p BiV pacemaker placement and AV Ablation has some pain at procedure site has cough denies sob no fevers no nausea hemodynamics stable family in room OBJECTIVE: Vital Signs-as noted below Exam: General-alert and Oriented. Not in distress. ENT-normal hearing Neck-no neck masses Lungs-cta b/l b/l wheezing present no crackles Heart-s1 and s2 heard regular no murmurs s/p pacemaker placement-in dressing Abdomen-soft bowel sounds present non tender no distension Extremities-no erythema Neuro-alert and awake moves extremities Lab data as noted below. ASSESSMENT & PLAN: ATRIAL FIBRILLATION transferred from [facility] to undergo ablation and cardiac pacemaker placement with Dr. Chowdhury Long standing history of difficult to control atrial fibrillation - had a recent hospitalization where digoxin was added to high dose metoprolol succinate s/p BIV pacemaker placement and Av ablation today currently on Toprol xl 50mg bid Coumadin restarted f/u inr. INFLUENZA B MILD COPD EXACERBATION positive for influenza B at [facility] To continue Tamilfu to complete course To continue low dose prednisone to complete 5 day course nebs will monitor ENCEPHALOPATHY ON ADMISSION FROM MEDS? STOPPED TAMIFLU WILL MONITOR CHRONIC SYSTOLIC CHF EF 42% on echo 08/2017 Most likely tachycardia induced To continue home dose furosemide will monitor SEIZURE DISORDER On levetiracetam DENOMINATIONAL DVT PROPHYLAXIS INR 1.8 CODE STATUS Full DISPO Monitor in tele to be determined Vital Signs: Date Time Temp Pulse Resp B/P (MAP) Pulse Ox O2 Delivery O2 Flow Rate FiO2 09/08/17 07:10 88 16 93 Room Air 09/08/17 07:00 36.8 90 18 140/89 (106) 93 Room Air 09/08/17 04:10 36.7 89 20 133/82 (99) 93 Room Air 09/08/17 04:00 Room Air 09/08/17 01:55 88 16 93 Room Air 09/08/17 00:00 Room Air 09/07/17 23:38 37.0 90 20 116/75 (89) 91 Room Air 09/07/17 20:00 Room Air 09/07/17 19:10 90 16 96 Room Air 09/07/17 19:00 37.0 89 18 121/79 (93) 92 Room Air 09/07/17 17:18 37.1 90 18 123/67 (85) 93 Room Air 09/07/17 16:47 90 126/80 (95) 09/07/17 16:17 36.6 90 16 135/81 (99) 97 Nasal Cannula 2.0 09/07/17 16:00 Nasal Cannula 2.0 09/07/17 15:47 36.6 90 16 131/81 (98) 98 Nasal Cannula 2.0 09/07/17 15:17 90 134/84 (101) 09/07/17 15:02 89 133/83 (100) 09/07/17 14:47 90 134/83 (100) 09/07/17 14:30 89 142/86 (104) 94 Nasal Cannula 2.0 09/07/17 14:23 67 16 94 Room Air 09/07/17 14:15 36.5 90 16 135/83 (100) 92 Room Air 09/07/17 13:57 90 18 133/88 (103) 94 Room Air 09/07/17 13:47 89 16 117/76 (90) 93 Room Air 09/07/17 08:00 Room Air 09/07/17 07:46 36.9 65 18 131/85 (100) 95 Room Air Lab Results:
[2017-09-07] MEDS: PRAVASTATIN SOD 40 MG TAB PO SCH (20:22)
[2017-09-07] MEDS: METOPROLOL SUCC 50MG EXT REL TAB PO SCH (20:22)
[2017-09-07] MEDS: LEVETIRACETAM 250 MG TAB PO SCH (20:23)
[2017-09-07] MEDS ORDERED: OSELTAMIVIR PHOSPHATE SUSP 30 MG/5 ML UDP PO SCH (21:00)
[2017-09-08 01:55] VITALS: PULSE 88; O2SAT 93
[2017-09-08] MEDS: LEVALBUTEROL 1.25MG/0.5ML NEB INH SCH ×2 (01:55→07:09)
[2017-09-08 04:10] VITALS: BP 133/82; PULSE 89; TEMP 36.7; O2SAT 93
--- NOTE | 2017-09-08 06:33 | DIAGNOSTIC IMAGING REPORT ---
CHEST 2 VIEWS ROUTINE CLINICAL HISTORY: EXACT TIME ORDERED Evaluate for pneumothorax and lead placement COMPARISON STUDY: 09/06/2017 FINDINGS: Interval placement of a permanent bipolar cardiac pacemaker. Leads are in good position. No evidence of pneumothorax. IMPRESSION: Permanent bipolar cardiac pacemaker in good position. No evidence for pneumothorax. The above report was generated using voice recognition software. It may contain grammatical, syntax or spelling errors. Electronically signed by: Yifan Melton M.D. 09/08/2017 6:31 AM Dictated Date/Time: 09/08/2017 6:31 AM
[2017-09-08 07:00] VITALS: BP 140/89; PULSE 90; TEMP 36.8; O2SAT 93
[2017-09-08 07:10] VITALS: PULSE 88; O2SAT 93
[2017-09-08] MEDS: CALCIUM 600MG + VIT D 400 IU TAB PO SCH (07:56)
[2017-09-08] MEDS: LEVETIRACETAM 250 MG TAB PO SCH (07:56)
[2017-09-08] MEDS: FUROSEMIDE 20 MG TAB PO SCH (07:56)
[2017-09-08] MEDS: POTASSIUM CHLORIDE 10 MEQ TABCR PO SCH (07:56)
[2017-09-08] MEDS: METOPROLOL SUCC 50MG EXT REL TAB PO SCH (07:57)
[2017-09-08] MEDS: FAMOTIDINE 20 MG TAB PO SCH (07:57)
[2017-09-08] MEDS: CHOLECALCIFEROL 400 INTER.UNIT TAB PO SCH (07:57)
--- NOTE | 2017-09-08 08:01 | Cardiology Follow-Up ---
Subjective Subjective Date of Service: Sep 08, 2017. Pt evaluation today including: conversation w/ patient, physical exam, chart review, lab review Pain: minimal Additional Details: no events overnight Review of Systems Constitutional: + fatigue Respiratory: + wheezing, + shortness of breath Cardiac: No chest pain, No edema, No palpitations Endo: + fatigue Objective Vital Signs Last Vital Signs Documentation Date Time Temp Pulse Resp B/P (MAP) Pulse Ox O2 Delivery O2 Flow Rate FiO2 09/08/17 07:10 88 16 93 Room Air 09/08/17 07:00 36.8 140/89 (106) 09/07/17 16:17 2.0 Physical Exam: General Appearance: WD/WN, no apparent distress Eyes: bilateral eyes PERRL, bilateral eyes EOMI Neck: supple, + JVD Respiratory/Chest: lungs clear, normal breath sounds Cardiovascular: regular rate, rhythm, no murmur, + JVD Abdomen: soft Neurologic/Psychiatric: alert, oriented x 3 Skin: warm/dry (no hematoma, mild ecchymosis) Assessment and Plan Impression: 1. Permanent AF with RVR despite high dose Toprol; hospitalized 08/2017 started on digoxin in addition to toprol; remains on coumadin 7 (age, female, HTN, CHF, CVA) s/p BiV Permanent pacemaker and AVN ablation 2. NICM EF was normal in 05/2017 and now 42% on echo from 08/27/2017 3. H/o Tachycardia induced NICM that resolved 4. Chronic systolic and diastolic HF, NYHA Class III 5. H/o CVA in 2014 6. H/o amiodarone induced hyperthyroidism Plan: -Ok from an EP perspective to discharge today -Discharge on coumadin, toprol 50mg BID (I will decrease as an outpatient) -Stop digoxin -Discharge on Lasix 60mg daily -Device adn wound check next week in [place] -F/u with me in 1 month in [place] -Pt not allowed to lift the left elbow over the left shoulder for 1 month and no lifting more than 10 pounds with the left arm for 2 weeks -Can shower tomorrow Medications: Medications Administered Medications (Trade) Dose Ordered Sig/Gomez Route Start Time Stop Time Status Last Admin Dose Admin Furosemide (Lasix Tab) 60 mg BID17 PO 09/06/17 18:00 3/29/18 17:59 09/07/17 17:29 60 MG Levetiracetam (Keppra Tab) 750 mg BID PO 09/06/17 21:00 10/06/17 20:59 09/07/17 20:23 750 MG Pravastatin Sodium (Pravachol Tab) 40 mg HS PO 09/06/17 21:00 10/06/17 20:59 09/07/17 20:22 40 MG Prednisone (PredniSONE TAB) 20 mg DAILY PO 09/07/17 09:00 09/09/17 09:01 09/07/17 15:59 20 MG Ipratropium [place] (Atrovent 0.02% 0.5MG/2.5ML Neb) 0.5 mg Q6R INH 09/06/17 21:00 09/06/17 23:46 DC 09/06/17 18:57 0.5 MG Levalbuterol (Xopenex 1.25MG/ 0.5ML Neb) 1.25 mg Q6R INH 09/06/17 21:00 10/06/17 20:59 09/08/17 07:09 1.25 MG Metoprolol Succinate (Toprol Xl Tab) 50 mg BID PO 09/07/17 21:00 10/06/17 20:59 09/07/17 20:22 50 MG Warfarin Sodium (Coumadin Tab) 5 mg DAILY@16 PO 09/07/17 16:00 10/07/17 15:59 09/07/17 16:00 5 MG Oseltamivir Phosphate (Tamiflu Susp) 30 mg BID PO 09/07/17 21:00 09/08/17 07:35 DC 09/07/17 21:51 30 MG Lab Results: Device Interrogation Today: Underlying AF in 40s RV: 15.3mV; 551 ohms; 0.5V@0.4ms LV: 703 ohms; 3.5V@1.5ms Device reprogramed: LV pacing 20ms before RV ECG: BiV Paced 90bpm underlying AF CXR: No PTX Leads in place
[2017-09-08 09:30] LABS: BASO % 0.1 %; BASO ABS # 0.01 K/uL (0-0.2); EOS % 0.1 %; EOS ABS # 0.01 K/uL (0-0.5); HEMATOCRIT 42.9 % (37-47); HEMOGLOBIN 14.1 g/dL (12.0-16.0); IG# 0.03 K/uL (0.00-0.02); LYMPH % 16.2 %; MEAN CELL VOLUME 96.8 fL (80-100); MEAN CORPUSCULAR HEMOGLOBIN 31.8 pg (25-34); MEAN CORPUSCULAR HGB CONC 32.9 g/dl (32-36); MEAN PLATELET VOLUME 10.5 fL (7.4-10.4); MONO % 7.9 %; MONO ABS # 0.73 K/uL (0.11-0.59); NEUT % 75.4 %; NEUT ABS # 6.98 K/uL (1.4-6.5); PLATELET COUNT 145 K/uL (130-400); RED CELL DISTRIBUTION WIDTH CV 14.4 % (11.5-14.5); RED CELL DISTRIBUTION WIDTH SD 51.4 fL (36.4-46.3); WHITE BLOOD COUNT 9.26 K/uL (4.8-10.8)
[2017-09-08 09:38] LABS: INR 1.9 (0.9-1.1)
[2017-09-08 10:00] LABS: CREATININE 0.96 mg/dl (0.60-1.20); POTASSIUM 3.4 mmol/L (3.5-5.1)
--- NOTE | 2017-09-08 11:01 | Anesthesiology Progress Note ---
Anesthesia Post Op Note Date & Time Sep 08, 2017 at 11:01 Vital Signs Vital Signs Past 12 Hours Date Time Temp Pulse Resp B/P (MAP) Pulse Ox O2 Delivery O2 Flow Rate FiO2 09/08/17 08:00 Room Air 09/08/17 07:10 88 16 93 Room Air 09/08/17 07:00 36.8 90 18 140/89 (106) 93 Room Air 09/08/17 04:10 36.7 89 20 133/82 (99) 93 Room Air 09/08/17 04:00 Room Air 09/08/17 01:55 88 16 93 Room Air 09/08/17 00:00 Room Air 09/07/17 23:38 37.0 90 20 116/75 (89) 91 Room Air Notes Mental Status: alert / awake / arousable, participated in evaluation Pt Amnestic to Procedure: Yes Nausea / Vomiting: adequately controlled Pain: adequately controlled Airway Patency, RR, SpO2: stable & adequate BP & HR: stable & adequate Hydration State: stable & adequate Anesthetic Complications: no major complications apparent
[2017-09-08] MEDS ORDERED: TPRSR50 PO (11:14)
[2017-09-08] MEDS ORDERED: FURO20TA PO (11:14)
[2017-09-08] MEDS ORDERED: POTASSIUM CHLORIDE 10 MEQ TABCR PO ONE (11:15)
[2017-09-08 11:20] VITALS: BP 140/89; PULSE 90; TEMP 36.8; O2SAT 93
--- NOTE | 2017-09-08 11:23 | Discharge Instructions ---
Discharge Instructions Date of Service Sep 08, 2017. Admission Reason for Admission: A Fib W/Rvr,Cardiomyopathy, Chronic Systolic Heart Discharge Discharge Diagnosis / Problem: Rapid a fib s/p ablation, sytolic chf. Discharge Goals Goal(s): Decrease discomfort, Improve function Activity Recommendations Activity Limitations: resume your previous activity Lifting Limitations: no more than 10 pounds (for 2 weeks) Shower/Bathe: tomorrow Driving or Machine Use: no driving until seen by cardiology . Instructions / Follow-Up Instructions / Follow-Up FOLLOWUP WITH FAMILY DOCTOR ON September 12:45PM. FOLLOWUP WITH CARDIOLOGY IN ONE MONTH. FOLLOWUP AT [facility] IN ONE WEEK FOR DEVICE CHECK. LAB: BMP IN ONE WEEK AND FOLLOW RESULTS WITH FAMILY DOCTOR. LAB: PT/INR IN 2-3 DAYS AND FOLLOW RESULTS WITH COUMADIN CLINIC CHANGE IN MEDICATION: METOPROLOL SUCCINATE( TOPROL XL) CHANGED TO 50MG ONE TAB PO TWICE DAILY. LASIX CHANGED TO 60MG PO DAILY STOPPED DIGOXIN. Pt not allowed to lift the left elbow over the left shoulder for 1 month and no lifting more than 10 pounds with the left arm for 2 weeks Can shower tomorrow Call your Primary Care doctor if any of the following symptoms or problems start or get worse: * Shortness of breath or difficulty breathing * Wake up at night short of breath * Chest pain * Cough * Swelling of your hands, feet, or legs * More fatigued or tired with your normal activity * Palpitations - sudden fast heart beats WEIGHT * Weigh yourself every morning after using the bathroom. * Use the same scale. * Wear the same amount of clothing. * Write your weight down on a chart. * Call your Primary Care doctor if you gain more than 2-3 pounds in 1-2 days. MEDICATIONS * Use this discharge instruction sheet for medication instructions. * Take your medications at the time your doctor ordered. * Do not skip a dose of your medicines. * If you miss a dose of medicine, take it as soon as possible, but DO NOT DOUBLE A DOSE. * Read your medicine information when you get home. * Know all of the side effects of your medicine. If in doubt, ask your pharmacist * Call your Primary Care doctor's office if you have any side effects. * Be sure all of your doctors know what medicine and herbs you take (including cold, flu, and herbal medicine). Take the following with you to your follow-up doctor appointments: * Weight Chart * Medication List * List of questions Do not drink excessive alcohol, beer or wine. Current Hospital Diet Patient's current hospital diet: AHA Diet (Heart Healthy) Discharge Diet Recommended Diet: AHA Diet (Heart Healthy) Procedures Procedures Performed: BiVentricular permanent pacemaker rate responsive; peripheral and coronary sinus venogram; AV Sherlyn ablation Pending Studies Studies pending at discharge: no Medical Emergencies . Who to Call and When: Call 911 or go to the Emergency Room if: * If at any time you feel your situation is an emergency * You have tightness or pain in your chest that does not go away with rest or Nitroglycerin * You are very short of breath even with rest . Non-Emergent Contact Non-Emergency issues call your: Primary Care Provider . . "Provider Documentation" section prepared by Dewey Gloria. .
[2017-09-08 11:49] VITALS: BP 140/89; PULSE 90; TEMP 36.8; O2SAT 93
--- NOTE | 2017-09-08 18:37 | Progress Note ---
Internal Med Progress Note Date of Service: Sep 08, 2017. Provider Documentation: SUBJECTIVE: s/p BiV pacemaker placement and AV Ablation yesterday has some pain at procedure site has cough and wheezing going on for sometime denies sob or chest pain no fevers ambulated ok ok for discharge OBJECTIVE: Vital Signs-as noted below Exam: General-alert and Oriented. Not in distress. ENT-normal hearing Neck-no neck masses Lungs-cta b/l b/l wheezing present no crackles Heart-s1 and s2 heard regular no murmurs s/p pacemaker placement-in dressing Abdomen-soft bowel sounds present non tender no distension Extremities-no erythema Neuro-alert and awake moves extremities Lab data as noted below. ASSESSMENT & PLAN: ATRIAL FIBRILLATION transferred from [facility] to undergo ablation and cardiac pacemaker placement with Dr. Chowdhury Long standing history of difficult to control atrial fibrillation - had a recent hospitalization where digoxin was added to high dose metoprolol succinate s/p BIV pacemaker placement and Av ablation 09/07/17 currently on Toprol xl 50mg bid Coumadin restarted f/u inr 1.8 at discharge stopped digoxin at discharge changed Toprol xl to 50mg bid f/u with cardiology f/u with Coumadin clinic. INFLUENZA B MILD COPD EXACERBATION positive for influenza B at [facility] To continue Tamilfu to complete course Tamiflu stopped because of possible confusion ENCEPHALOPATHY ON ADMISSION FROM MEDS? STOPPED TAMIFLU WILL MONITOR stable CHRONIC SYSTOLIC CHF EF 42% on echo 08/2017 Most likely tachycardia induced discharged on lasix 60mg daily as per cardiology recommendations SEIZURE DISORDER On levetiracetam RASTAFARI DVT PROPHYLAXIS INR 1.8 CODE STATUS Full DISPO ambulated fine discharged home f/u with pcp and cardiology Vital Signs: Date Time Temp Pulse Resp B/P (MAP) Pulse Ox O2 Delivery O2 Flow Rate FiO2 09/08/17 11:49 36.8 90 20 93 Room Air 09/08/17 11:20 36.8 90 20 140/89 (106) 93 09/08/17 08:00 Room Air 09/08/17 07:10 88 16 93 Room Air 09/08/17 07:00 36.8 90 18 140/89 (106) 93 Room Air 09/08/17 04:10 36.7 89 20 133/82 (99) 93 Room Air 09/08/17 04:00 Room Air 09/08/17 01:55 88 16 93 Room Air 09/08/17 00:00 Room Air 09/07/17 23:38 37.0 90 20 116/75 (89) 91 Room Air 09/07/17 20:00 Room Air 09/07/17 19:10 90 16 96 Room Air 09/07/17 19:00 37.0 89 18 121/79 (93) 92 Room Air Lab Results: Results Past 24 Hours Test 09/08/17 09:00 Range/Units White Blood Count 9.26 4.8-10.8 K/uL Red Blood Count 4.43 4.2-5.4 M/uL Hemoglobin 14.1 12.0-16.0 g/dL Hematocrit 42.9 37-47 % Mean Corpuscular Volume 96.8 80-100 fL Mean Corpuscular Hemoglobin 31.8 25-34 pg Mean Corpuscular Hemoglobin Concent 32.9 32-36 g/dl Platelet Count 145 130-400 K/uL Mean Platelet Volume 10.5 7.4-10.4 fL Neutrophils (%) (Auto) 75.4 % Lymphocytes (%) (Auto) 16.2 % Monocytes (%) (Auto) 7.9 % Eosinophils (%) (Auto) 0.1 % Basophils (%) (Auto) 0.1 % Neutrophils # (Auto) 6.98 1.4-6.5 K/uL Lymphocytes # (Auto) 1.50 1.2-3.4 K/uL Monocytes # (Auto) 0.73 0.11-0.59 K/uL Eosinophils # (Auto) 0.01 0-0.5 K/uL Basophils # (Auto) 0.01 0-0.2 K/uL RDW Standard Deviation 51.4 36.4-46.3 fL RDW Coefficient of Variation 14.4 11.5-14.5 % Immature Granulocyte % (Auto) 0.3 % Immature Granulocyte # (Auto) 0.03 0.00-0.02 K/uL Prothrombin Time 19.9 9.0-12.0 SECONDS Prothromb Time International Ratio 1.9 0.9-1.1 Sodium Level 138 136-145 mmol/L Potassium Level 3.4 3.5-5.1 mmol/L Chloride Level 101 98-107 mmol/L Carbon Dioxide Level 28 21-32 mmol/L Anion Gap 9.0 3-11 mmol/L Blood Urea Nitrogen 13 7-18 mg/dl Creatinine 0.96 0.60-1.20 mg/dl Est Creatinine Clear Calc Drug Dose 43.9 ml/min Estimated GFR () 64.3 Estimated GFR (Non- 55.5 BUN/Creatinine Ratio 13.0 10-20 Random Glucose 123 70-99 mg/dl Calcium Level 9.0 8.5-10.1 mg/dl
--- NOTE | 2017-09-08 18:39 | Discharge Summary ---
Discharge Summary Date of Service Sep 08, 2017. Discharge Summary Admission Date: Sep 06, 2017 at 14:05 Discharge Date: Sep 08, 2017 Discharge Disposition: Home Principal Diagnosis: RAPID A FIB S/P ABLATION S/P BIVENTRICULAR PACEMAKER Secondary Diagnoses/Problems: (1) Centrilobular emphysema Status: Chronic (2) CVA (cerebral vascular accident) Status: Chronic (3) Dyslipidemia Status: Chronic (4) Esophageal stricture Status: Chronic (5) HTN (hypertension) Status: Chronic (6) Osteoporosis Status: Chronic (7) Paroxysmal A-fib Status: Chronic (8) Refusal of blood transfusions as patient is [place] Status: Chronic (9) Seizure disorder Status: Chronic (10) Systolic CHF Status: Chronic (11) TIA (transient ischemic attack) Status: Chronic Procedures: CXR: Permanent bipolar cardiac pacemaker in good position. No evidence for pneumothorax. Consultations: CARDIOLOGY Medication Reconciliation New Medications: Furosemide (Lasix) 20 Mg Tab 60 MG PO DAILY for 30 Days, #90 TAB 1 Refill Metoprolol Succinate (Metoprolol Succinate ER) 50 Mg Tabcr 50 MG PO BID, #60 1 Refill Continued Medications: Benzonatate (Tessalon Perles) 100 Mg Cap 100 MG PO TID PRN for Cough, CAP Betamethasone Dip (Betamethasone Dipropionat) 45 Appln/15 Gm Cr 1 APPLN TOP HS for 14 Days, #15 GM 3 Refills Calcium/Vitamin D (Os-Jean-Pierre 500 Plus D) Tab 1 TAB PO DAILY, TAB Cholecalciferol (Vitamin D) 400 Unit Tab 1 CAP PO DAILY Famotidine (Pepcid) 20 Mg Tab 20 MG PO DAILY, TAB Ipratropium [place] (Ipratropium [place]) 0.5 Mg/2.5 Ml Nebu 1 VIAL NEB BID for 30 Days, #300 ML 5 Refills Levetiracetam (Keppra) 750 Mg Tab 750 MG PO BID, TAB Nitroglycerin (Nitrostat) 0.4 Mg Tab 1 TAB SL UD, #100 TAB 3 Refills Polyethylene Glycol-Propylene (Systane) 1 Donna Donna 1 DROPS OPB QID PRN for DRYNESS, #30 ML 5 Refills Potassium Chloride (Micro-K Ext Rel) 10 Meq Capcr 10 MEQ PO DAILY, #2 CAP Pravastatin Sodium (Pravastatin Sodium) 40 Mg Tab 1 TAB PO HS for 90 Days, #90 TAB 1 Refill Prednisone (Prednisone) 20 Mg Tab 1 TAB PO DAILY for 3 Days, #3 TAB Warfarin Sod (Coumadin) 5 Mg Tab 5 MG PO 3XWK Sun, Tues, Thurs Warfarin Sod (Coumadin) 2.5 Mg Tab 2.5 MG PO 4XWK, TAB Mon, Wed, Fri, Sat Discontinued Medications: Digoxin (Digoxin) 0.125 Mg Tab 1 TAB PO DAILY Furosemide (Lasix) 20 Mg Tab 60 MG PO BID Metoprolol Succ (Toprol Xl) (Toprol-Xl ) 100 Mg Tabcr 100 MG PO BID, TAB Oseltamivir (Tamiflu) 75 Mg Cap 75 MG PO BID for 2 Days, #10 Admission Information HPI (per Admitting provider): 82 year old female who was admitted to [facility] yesterday for atrial fibrillation with RVR and influenza B. Patient has a long standing history of difficult to control atrial fibrillation. She was hospitalized at the beginning of August and was started on digoxin in addition to her high dose metoprolol succinate. About 5 days ago patient started to get sick with fevers and productive cough. [facility] Patient is unsure if she has been taking this medication correctly. She had an appointment with Dr. Chowdhury yesterday who found the patient to be in atrial fibrillation with RVR. She was then sent to [facility] ED where she was admitted. She was found to be influenza B positive. She was continued on Tamiflu and started on low dose Prednisone. She was also started on Cardizem drip for heart rate control which has since been weaned off. Her INR was 1.8 and she was started on Heparin gtt which has been discontinued as well. INR was 2.1 this morning. Patient currently reports she is feeling well. She reports much improvement in her cough. No feelings of chest pain, palpitations, or shortness of breath. She denies lightheadedness, dizziness, diaphoresis, or syncopal events. No abdominal pain, nausea, vomiting, or diarrhea. She denies any urinary symptoms. No further fevers or chills. At the time of my exam, patient is resting in bed in no acute distress. Physical Exam (per Admitting): General Appearance: WD/WN, no apparent distress Head: normocephalic, atraumatic Eyes: normal inspection, EOMI, sclerae normal ENT: hearing grossly normal, + pertinent finding (mucous membranes moist) Neck: supple, no JVD, trachea midline Respiratory/Chest: no respiratory distress, + wheezing (faint, scattered, expiratory ) Cardiovascular: + irregularly irregular (rate controlled), + pertinent finding (trace edema BLLE) Abdomen/GI: normal bowel sounds, non tender, soft, no organomegaly Extremities/Musculoskelatal: normal inspection, no calf tenderness, normal capillary refill Neurologic/Psych: no motor/sensory deficits, alert, normal mood/affect, oriented x 3 Skin: normal color, warm/dry Hospital Course ATRIAL FIBRILLATION transferred from [facility] to undergo ablation and cardiac pacemaker placement with Dr. Chowdhury Long standing history of difficult to control atrial fibrillation - had a recent hospitalization where digoxin was added to high dose metoprolol succinate s/p BIV pacemaker placement and Av ablation 09/07/17 currently on Toprol xl 50mg bid Coumadin restarted f/u inr 1.8 at discharge stopped digoxin at discharge changed Toprol xl to 50mg bid f/u with cardiology f/u with Coumadin clinic. INFLUENZA B MILD COPD EXACERBATION positive for influenza B at [facility] To continue Tamilfu to complete course Tamiflu stopped because of possible confusion ENCEPHALOPATHY ON ADMISSION FROM MEDS? STOPPED TAMIFLU WILL MONITOR stable CHRONIC SYSTOLIC CHF EF 42% on echo 08/2017 Most likely tachycardia induced discharged on lasix 60mg daily as per cardiology recommendations SEIZURE DISORDER On levetiracetam PENTECOSTAL DVT PROPHYLAXIS INR 1.8 CODE STATUS Full DISPO ambulated fine discharged home f/u with pcp and cardiology Total time spent on discharge = 35MINUTES This includes examination of the patient, discharge planning, medication reconciliation, and communication with other providers. Discharge Instructions Discharge Instructions Date of Service Sep 08, 2017. Admission Reason for Admission: A Fib W/Rvr,Cardiomyopathy, Chronic Systolic Heart Discharge Discharge Diagnosis / Problem: Rapid a fib s/p ablation, sytolic chf. Discharge Goals Goal(s): Decrease discomfort, Improve function Activity Recommendations Activity Limitations: resume your previous activity Lifting Limitations: no more than 10 pounds (for 2 weeks) Shower/Bathe: tomorrow Driving or Machine Use: no driving until seen by cardiology . Instructions / Follow-Up Instructions / Follow-Up FOLLOWUP WITH FAMILY DOCTOR ON September 12:45PM. FOLLOWUP WITH CARDIOLOGY IN ONE MONTH. FOLLOWUP AT [facility] IN ONE WEEK FOR DEVICE CHECK. LAB: BMP IN ONE WEEK AND FOLLOW RESULTS WITH FAMILY DOCTOR. LAB: PT/INR IN 2-3 DAYS AND FOLLOW RESULTS WITH COUMADIN CLINIC CHANGE IN MEDICATION: METOPROLOL SUCCINATE( TOPROL XL) CHANGED TO 50MG ONE TAB PO TWICE DAILY. LASIX CHANGED TO 60MG PO DAILY STOPPED DIGOXIN. Pt not allowed to lift the left elbow over the left shoulder for 1 month and no lifting more than 10 pounds with the left arm for 2 weeks Can shower tomorrow Call your Primary Care doctor if any of the following symptoms or problems start or get worse: * Shortness of breath or difficulty breathing * Wake up at night short of breath * Chest pain * Cough * Swelling of your hands, feet, or legs * More fatigued or tired with your normal activity * Palpitations - sudden fast heart beats WEIGHT * Weigh yourself every morning after using the bathroom. * Use the same scale. * Wear the same amount of clothing. * Write your weight down on a chart. * Call your Primary Care doctor if you gain more than 2-3 pounds in 1-2 days. MEDICATIONS * Use this discharge instruction sheet for medication instructions. * Take your medications at the time your doctor ordered. * Do not skip a dose of your medicines. * If you miss a dose of medicine, take it as soon as possible, but DO NOT DOUBLE A DOSE. * Read your medicine information when you get home. * Know all of the side effects of your medicine. If in doubt, ask your pharmacist * Call your Primary Care doctor's office if you have any side effects. * Be sure all of your doctors know what medicine and herbs you take (including cold, flu, and herbal medicine). Take the following with you to your follow-up doctor appointments: * Weight Chart * Medication List * List of questions Do not drink excessive alcohol, beer or wine. Current Hospital Diet Patient's current hospital diet: AHA Diet (Heart Healthy) Discharge Diet Recommended Diet: AHA Diet (Heart Healthy) Procedures Procedures Performed: BiVentricular permanent pacemaker rate responsive; peripheral and coronary sinus venogram; AV Sherlyn ablation Pending Studies Studies pending at discharge: no Medical Emergencies . Who to Call and When: Call 911 or go to the Emergency Room if: * If at any time you feel your situation is an emergency * You have tightness or pain in your chest that does not go away with rest or Nitroglycerin * You are very short of breath even with rest . Non-Emergent Contact Non-Emergency issues call your: Primary Care Provider . . "Provider Documentation" section prepared by Dewey Gloria.
== END 2017-09-08 12:34 | disposition home health service (06) | DRG 242 ==
LOC: C.2T 14:05 → EDSTATUS 09-07 08:00
PROVIDERS: ADMIT Internal Medicine; ATTEND Internal Medicine
PROC: 02HL3JZ Insertion of Pacemaker Lead into Left Ventricle, Percutaneous Approach (ICD-10-PCS; principal; 2017-09-07 08:00)
PROC: 02HK3JZ Insertion of Pacemaker Lead into Right Ventricle, Percutaneous Approach (ICD-10-PCS; principal; 2017-09-07 08:00)
PROC: 0JH637Z Insertion of Cardiac Resynchronization Pacemaker Pulse Generator into Chest Subcutaneous Tissue and Fascia, Percutaneous Approach (ICD-10-PCS; principal; 2017-09-07 08:00)
PROC: 02563ZZ Destruction of Right Atrium, Percutaneous Approach (ICD-10-PCS; principal; 2017-09-07 08:00)
DX: I48.2 Chronic atrial fibrillation (principal); G93.40 Encephalopathy, unspecified; I50.43 Acute on chronic combined systolic (congestive) and diastolic (congestive) heart failure; J44.1 Chronic obstructive pulmonary disease with (acute) exacerbation; I42.9 Cardiomyopathy, unspecified; I44.7 Left bundle-branch block, unspecified; J10.1 Influenza due to other identified influenza virus with other respiratory manifestations; T37.5X5A Adverse effect of antiviral drugs, initial encounter; I11.0 Hypertensive heart disease with heart failure; G40.909 Epilepsy, unspecified, not intractable, without status epilepticus; E78.5 Hyperlipidemia, unspecified; Z86.73 Personal history of transient ischemic attack (TIA), and cerebral infarction without residual deficits; Z79.01 Long term (current) use of anticoagulants; Z79.899 Other long term (current) drug therapy; Z88.0 Allergy status to penicillin; Z88.8 Allergy status to other drugs, medicaments and biological substances